=== PATIENT | female | born 1960 | race Caucasian/White ===

== ENCOUNTER 2017-09-05 23:43 | Emergency (ER) | payer BC, OTHER ==
--- NOTE | 2017-09-05 23:46 | PDOC ---
History of Present Illness - General Chief Complaint: Pain, Acute Stated Complaint: LLQ PAIN Time Seen by Provider: 09/05/17 23:45 History Source: Patient Exam Limitations: No Limitations - History of Present Illness Initial Comments: 09/06/17 00:44 This is a 57-year-old female who comes in complaining of left lower quadrant pain times several hours. Patient has a long extensive history including hypertension, high cholesterol, coronary artery disease, diabetes and end-stage renal disease on hemodialysis. Patient denies any chest pain, shortness of breath, cough, congestion. Patient denies any vomiting or diarrhea. Patient said she does have some mild nausea. Patient is also complaining of some bloating and feels like her abdomen is distended. Patient did have a normal bowel movement today. PAST MEDICAL HISTORY: Extensive medical history as per history of present illness PAST SURGICAL HISTORY: no significant history FAMILY HISTORY: no pertinant history SOCIAL HISTORY: Pt lives with family and is employed. MEDICATIONS: reviewed ALLERGIES: As per nursing notes Review of Systems General: No fevers or chills, no weakness, no weight loss HEENT: No change in vision. No sore throat,. No ear pain CardioVascular: No chest pain or shortness of breath Respiratory:No cough, or wheezing. Gastrointestinal: + nausea, no vomitting, diarrhea or constipation, No rectal bleeding, +abd pain llq Genitourinary: No dysuria, hematuria, or frequency Musculoskeletal: No joint or muscle pain or swelling Neurologic: No headache, vertigo, dizziness or loss of consciousness Psychiatric: nor depression Skin: No rashes or easy bruising Endocrine: no increased thirst or abnormal weight change Allergic: no skin or latex allergy All other systems reviewed and normal Exam: General: Well-nourished well-developed individual, no acute distress HEENT: Throat: Normal, tonsils normal, no erythema or exudate Neck: Supple, no meningeal signs, no lymphadenopathy Eyes::Pupils equal reactive and round, extraocular motion intact Chest: Nontender to palpation Cardiac: S1-S2 normal, regular rate and rhythm, no murmurs rubs or gallops Respiratory: Lungs clear to auscultation bilateral Abdomen: Soft, mildly distended, normal bowel sounds, tender on palpation LLQ, no guarding or rebound Extremities: Warm, dry, no cyanosis, clubbing, or edema Skin: No rashes Neuro: Alert and oriented x3, CN II - XII intact, nonfocal exam with normal strength, normal sensation, normal reflexes, normal gait, Psych: Normal mood and affect Medical decision making this is a 57-year-old female who comes in complaining of abdominal pain. Will obtain workup including CBC, comp, EKG, CAT scan Will reassess EKG shows normal sinus rhythm at a rate of 67. The interpretation of the EKG she machine says acute AZ/STEMI. However in comparison with her EKG of May 2017 the EKG is unchanged. And the [address] elevation in lead 3 was present back in May as well. However I also did call her business process specialist Dr. Medina and I sent him copies of the old as well as current cardiogram from [place]. He also concurs that the EKG is unchanged and given the fact the patient has no subjective symptoms suggestive of any cardiac complaints including no chest pain, shortness of breath, arm pain neck pain back pain this EKG is not consistent with an acute AZ. 0100 Patient symptoms are completely resolved she has no further abdominal pain. Workup is still pending. 01:30 CAT scan of the abdomen shows a 2.6 cm pericardial effusion the appendix is normal, there is no evidence of diverticulitis Chemistries are significant for a elevated glucose of approximately 350 the patient said is not unusual for her. In addition to that her sodium is a little low and her BUN and creatinine are markedly elevated secondary to her chronic renal failure as she is on hemodialysis. Patient's primary doctor was called Dr. Montague who knows patient well since patient is had this pericardial effusion for a number of months and that she will follow-up with the patient in the morning but recommends the patient be discharged as the rest of her CAT scan is negative and her symptoms have completely resolved. Patient will be discharged home and follow-up with her primary care doctor Dr. Montague morning. Past History - Past Medical History Allergies/Adverse Reactions: Allergies Allergy/AdvReac Type Severity Reaction Status Date / Time No Known Allergies Allergy Verified 09/05/17 23:45 Home Medications: Ambulatory Orders Aspirin [ASA -] 81 mg PO DAILY 05/10/17 Atorvastatin Ca [Lipitor] 80 mg PO HS 05/10/17 Cholecalciferol (Vitamin D3) [Vitamin D3] 2,000 unit PO DAILY 05/10/17 Furosemide [Lasix] 40 mg PO DAILY 05/10/17 Insulin Glargine,Hum.rec.anlog [Lantus (10mL VIAL) -] 16 units SQ DAILY Insulin Lispro [Humalog] 0 unit SQ TID 05/10/17 Isosorbide Dinitrate [Isordil -] 30 mg PO BID 05/10/17 Metolazone 2.5 mg PO DAILY 05/10/17 Pantoprazole Sodium [Protonix] 40 mg PO DAILY 05/10/17 hydrALAZINE HCL [Apresoline -] 25 mg PO BID 05/10/17 Anemia: No Asthma: No Cancer: No Cardiac Disorders: Yes (AZ 2002 5 STENTS) CVA: No COPD: No CHF: No Dementia: No Diabetes: Yes Dialysis: Yes (RENAL FAILURE) GI Disorders: No Disorders: No HTN: Yes Hypercholesterolemia: Yes Liver Disease: No Seizures: No Thyroid Disease: No - Surgical History Abdominal Surgery: No Appendectomy: No Cardiac Surgery: Yes Cholecystectomy: No Lung Surgery: No Neurologic Surgery: No Orthopedic Surgery: Yes (HAND) - Immunization History Immunization Up to Date: Yes - Suicide/Smoking/Psychosocial Hx Smoking Status: No Smoking History: Never smoked Have you smoked in the past 12 months: No Number of Cigarettes Smoked Daily: 0 Hx Alcohol Use: No Drug/Substance Use Hx: No Substance Use Type: None Hx Substance Use Treatment: No ED Treatment Course - LABORATORY CBC & Chemistry Diagram: 09/06/17 00:06 09/06/17 00:06 *DC/Admit/Observation/Transfer Diagnosis at time of Disposition: Pericardial effusion Abdominal pain Qualifiers: Abdominal location: left lower quadrant Qualified Code(s): R10.32 - Left lower quadrant pain Chronic renal disease Qualifiers: Chronic kidney disease stage: on chronic dialysis Qualified Code(s): N18.6 - End stage renal disease; Z99.2 - Dependence on renal dialysis; Z99.2 - Dependence on renal dialysis; Z99.2 - Dependence on renal dialysis; Z99.2 - Dependence on renal dialysis - Discharge Dispostion Condition at time of disposition: Stable - Referrals Referrals: Ara Montague MD [Primary Care Provider] - - Patient Instructions Additional Instructions: Continue all your medications as prescribed. Call Dr. Montague in the morning, follow up with Dr. Montague tomorrow take copies of your cardiogram and CAT scan with you as well as your blood work Return to the emergency department immediately with ANY new, persistent or worsening symptoms. Continue any medications as previously prescribed by your physician. You should follow up with your primary doctor as soon as possible regarding today's emergency department visit. . Please make sure your doctor reviews the results of your emergency evaluation. Thank you for coming to the Emergency Department today for your care. It was a pleasure to see you today. Please note that your evaluation is INCOMPLETE until you follow-up with your doctor. - Post Discharge Activity
[2017-09-06 00:05] VITALS: PULSE 78; TEMP 97.7; BMI 25.0
[2017-09-06] MEDS ORDERED: ACETAMINOPHEN 1000 MG/100 ML VIAL (NON FORMULARY) IVPB ONE (00:08)
[2017-09-06] MEDS ORDERED: ONDANSETRON 4 MG/2 ML VIAL ONE (00:09)
[2017-09-06] MEDS ORDERED: HYOSCYAMINE SULFATE 0.125 MG *ODT PO ONE (00:09)
[2017-09-06] MEDS ORDERED: HYOSCYAMINE SULFATE 0.125 MG *ODT ONE (00:09)
[2017-09-06] MEDS ORDERED: ONDANSETRON 4 MG/2 ML VIAL IVPUSH ONE (00:09)
[2017-09-06] MEDS ORDERED: ACETAMINOPHEN INJECTION 100 ML IVPB ONE (00:10)
[2017-09-06 00:47] LABS: BASO % 0.6 % (0-2.0); EOS % 1.5 % (0-4.5); HEMATOCRIT 39.2 % (32.4-45.2); LYMPH % 7.3 % (8-40); MCH 31.3 pg (25.7-33.7); MCHC 33.1 g/dl (32.0-36.0); MEAN CELL VOLUME 94.3 fl (80-96); MEAN PLT VOLUME 10.8 fl (7.5-11.1); MONO % 7.7 % (3.8-10.2); NEUT % 82.9 % (42.8-82.8); PLATELET COUNT 138 K/MM3 (134-434); RBC 4.16 M/mm3 (3.60-5.2); RDW 16.8 % (11.6-15.6); WHITE BLOOD COUNT 7.2 K/mm3 (4.0-10.0)
[2017-09-06 01:13] VITALS: BP 166/91
[2017-09-06 01:13] LABS: ANION GAP 15 (8-16); BILIRUBIN,TOTAL 0.7 mg/dL (0.2-1.0); BLOOD UREA NITROGEN 70 mg/dL (7-18); CALCIUM 9.7 mg/dL (8.5-10.1); CHLORIDE 89 mmol/L (98-107); CO2 28 mmol/L (21-32); CREATININE 6.5 mg/dL (0.55-1.02); LIPASE 107 U/L (73-393); POTASSIUM 4.7 mmol/L (3.5-5.1); SGOT/AST 22 U/L (15-37); SGPT/ALT 22 U/L (12-78); SODIUM 132 mmol/L (136-145); TOT PROT 7.1 g/dl (6.4-8.2)
[2017-09-06 01:14] LABS: ALK PHOS 174 U/L (45-117)
[2017-09-06 01:20] LABS: GLUCOSE,RANDOM 350 mg/dL (74-106)
--- NOTE | 2017-09-06 11:59 | EKG ---
Test Reason : Blood Pressure : / mmHG Vent. Rate : 072 BPM Atrial Rate : 072 BPM P-R Int : 186 ms QRS Dur : 096 ms QT Int : 396 ms P-R-T Axes : 048 027 112 degrees QTc Int : 433 ms AGE AND GENDER SPECIFIC ECG ANALYSIS SINUS RHYTHM WITH OCCASIONAL PREMATURE VENTRICULAR COMPLEXES ANTEROLATERAL INFARCT (CITED ON OR BEFORE 11-MAY-2017) INFERIOR INFARCT ST depressions in leads I and aVL ABNORMAL ECG WHEN COMPARED WITH ECG OF 11-MAY-2017 10:21, PREMATURE VENTRICULAR COMPLEXES ARE NOW PRESENT Confirmed by MD Patti, Dominick ([id number]) on 09/06/2017 11:59:29 AM Referred By: MD MOLINA Confirmed By:Dominick Armstrong MD
== END 2017-09-06 01:58 | disposition home or self-care (01) ==
LOC: FER 23:43
PROC: 3E033NZ Introduction of Analgesics, Hypnotics, Sedatives into Peripheral Vein, Percutaneous Approach (ICD-10-PCS; principal; 2017-09-05)
PROC: 3E033GC Introduction of Other Therapeutic Substance into Peripheral Vein, Percutaneous Approach (ICD-10-PCS; 2017-09-05)
DX: I31.3 Pericardial effusion (noninflammatory) (principal); R10.32 Left lower quadrant pain; Z99.2 Dependence on renal dialysis; E11.9 Type 2 diabetes mellitus without complications; I10 Essential (primary) hypertension; E78.00 Pure hypercholesterolemia, unspecified; I25.2 Old myocardial infarction
CPT/HCPCS: 36415; 74176-TC; 80053; 82550; 83690; 84484; 85025; 93005; 99282-25